=== PATIENT | male | born 1940 | race Caucasian/White ===

== ENCOUNTER 2020-05-30 08:40 | Emergency (ER) | payer MEDICARE, OTHER ==
[~2020-05-30] VITALS: Ht 162.6 cm; Wt 102.3 kg
[~2020-05-30 08:40] MED LIST: ADV50500 INH; ALBU2.5V12 NEB; APIX5TAB3 PO; FLO0.4C PO; LEVO100T PO; LOSA25TA96 PO; MONT10TA32 PO; MULT-1085 PO; ONQPUMP ADDCANAL; THEO300T11 PO; TIOT18CA3 INH
[2020-05-30] MEDS ORDERED: silver sulfadiazine cream 400gm jar TP SCH (10:10)
[2020-05-30] MEDS ORDERED: silver sulfadiazine cream 400gm jar TP ONE (10:10)
[2020-05-30] MEDS ORDERED: HYDR25CA PO (10:18)
[2020-05-30 10:34] VITALS: BP 149/79
== END 2020-05-30 10:35 | disposition home or self-care (01) ==
LOC: ER 08:41
DX: L29.9 Pruritus, unspecified (principal); R21 Rash and other nonspecific skin eruption; I25.10 Atherosclerotic heart disease of native coronary artery without angina pectoris; I10 Essential (primary) hypertension; J44.9 Chronic obstructive pulmonary disease, unspecified; F17.200 Nicotine dependence, unspecified, uncomplicated; Z79.899 Other long term (current) drug therapy
CPT/HCPCS: 99283